=== PATIENT | male | born 1965 | race Caucasian/White ===

== ENCOUNTER 2024-07-27 18:15 | Inpatient (IN) | payer MEDICAID ==
[~2024-07-27] VITALS: Ht 167.6 cm; Wt 99.8 kg
[2024-07-27 18:38] VITALS: BP 119/71; PULSE 73; RESP 26; TEMP 98.7; O2SAT 98
[2024-07-27 19:58] LABS: FLU A ANTIGEN negative (NEGATIVE); FLU B ANTIGEN NEGATIVE (NEGATIVE)
[2024-07-27 20:48] VITALS: O2SAT 96
[2024-07-27 21:01] LABS: HEMATOCRIT 41.8 % (36-52); LYMPHOCYTES # (AUTO) 0.9 K/uL (2.0-11.5); LYMPHOCYTES % (AUTO) 5.3 % (20.5-51.1); MEAN CORPUSCULAR HEMOGLOBIN 31 pg (27-31); MEAN CORPUSCULAR HGB CONC 34 g/dL (33-37); MEAN CORPUSCULAR VOLUME 91.4 fL (80-94); MONOCYTES # (AUTO) 0.7 K/uL (0.8-1.0); MONOCYTES % (AUTO) 4.5 % (1.7-9.3); NEUTROPHILS # (AUTO) 14.6 K/uL (1.8-7.7); NEUTROPHILS % (AUTO) 90.2 % (42.2-75.2); PLATELET COUNT (AUTO) 223 K/uL (140-450); RED BLOOD CELL COUNT(AUTO) 4.57 MIL/uL (4.20-6.10); WHITE BLOOD COUNT (AUTO) 16.1 K/uL (4.8-10.8)
[2024-07-27 21:45] LABS: ANION GAP 15.1 (8-16); CALCIUM 8.9 mg/dL (8.5-10.1); CARBON DIOXIDE 32.4 mmol/L (21-32); POTASSIUM 4.5 mmol/L (3.5-5.1)
[2024-07-27 21:46] LABS: BLOOD GAS BASE EXCESS 6.3 mmol/L (-2.0-3.0); BLOOD GAS HCO3 30.7 mmol/L (21.0-28.0); BLOOD GAS PCO2 42.7 mmHg (35.0-48.0); BLOOD GAS PH 7.474 (7.350-7.450); BLOOD GAS PO2 63.2 mmHg (83.0-108.0)
[2024-07-27 21:46] LABS: CREATININE 0.9 mg/dL (0.6-1.3)
[2024-07-27 21:47] LABS: BLOOD GAS O2 SAT% 92.9 % (94.0-98.0)
[2024-07-27 21:56] LABS: ALKALINE PHOSPHATASE 51 U/L (50-136); ASPARTATE AMINOTRANSFERASE 23 U/L (15-37); TOTAL BILIRUBIN 0.5 mg/dL (0.0-1.0)
[2024-07-27 21:57] LABS: ALANINE AMINOTRANSFERASE 48 U/L (12-78); ALBUMIN 3.1 g/dL (3.4-5.0); TOTAL PROTEIN, SERUM 6.8 g/dL (6.4-8.2)
[2024-07-27 22:43] LABS: AMPHETAMINE, URINE POSITIVE ng/ml (NEG <=1000); BARBITURATE, URINE NEGATIVE ng/ml (NEG <=200); BENZODIAZEPINE, URINE NEGATIVE ng/mL (NEG <=200); CANNABINOID, URINE NEGATIVE ng/mL (NEG <=50); COCAINE, URINE NEGATIVE ng/mL (NEG <=300); OPIATE, URINE NEGATIVE ng/mL (NEG <=2000); PHENCYCLIDINE SCREEN,URINE NEGATIVE ng/mL (NEG <=25)
[2024-07-27 23:21] VITALS: O2SAT 96
[2024-07-27] MEDS ORDERED: LEVE500T9 PO (23:50)
[2024-07-27] MEDS ORDERED: PRED20TA5 PO (23:50)
[2024-07-27] MEDS ORDERED: METO25TE2 PO (23:50)
[2024-07-27] MEDS ORDERED: AMLO10TA PO (23:50)
[2024-07-27] MEDS ORDERED: ANAS1TAB56 PO (23:50)
[2024-07-27] MEDS ORDERED: METF-346 PO (23:50)
[2024-07-27] MEDS ORDERED: VIT1TABL36 PO (23:50)
[2024-07-27] MEDS ORDERED: CEPH250C16 PO (23:50)
[2024-07-28] VITALS (7 sets, daily range): BP systolic 95–149; BP diastolic 50–70; PULSE 52–89; RESP 16–22; TEMP 96.9–97.3; O2SAT 95–99
[2024-07-28] MEDS ORDERED: ALBUTEROL 0.083% 2.5 MG/3 ML NEBU INH PRN (00:20)
[2024-07-28] MEDS ORDERED: ONDANSETRON 4 MG/2 ML VIAL IVP PRN (00:20)
[2024-07-28] MEDS ORDERED: ACETAMINOPHEN 325 MG TAB PO PRN (00:20)
[2024-07-28] MEDS ORDERED: IPRATROPIUM 0.02% 0.5 MG/2.5 ML NEBU INH PRN (00:20)
[2024-07-28] MEDS ORDERED: DEXTROSE 50% 50 ML SYR IVP PRN (02:30)
[2024-07-28] MEDS: methylPREDNISolone SS 125 MG/2 ML VIAL IVP SCH (04:32)
[2024-07-28] MEDS: BLOOD GLUCOSE MONITORING 1 DEV DEV FS SCH (06:38)
[2024-07-28 06:42] LABS: BASOPHILS % (AUTO) 0.1 % (0.0-2.0); HEMATOCRIT 41.2 % (36-52); HEMOGLOBIN 13.9 g/dL (12.0-18.0); LYMPHOCYTES # (AUTO) 1.7 K/uL (2.0-11.5); LYMPHOCYTES % (AUTO) 11.7 % (20.5-51.1); MEAN CORPUSCULAR HEMOGLOBIN 31 pg (27-31); MEAN CORPUSCULAR HGB CONC 34 g/dL (33-37); MEAN CORPUSCULAR VOLUME 91.1 fL (80-94); MONOCYTES # (AUTO) 0.5 K/uL (0.8-1.0); MONOCYTES % (AUTO) 3.8 % (1.7-9.3); NEUTROPHILS % (AUTO) 84.4 % (42.2-75.2); PLATELET COUNT (AUTO) 211 K/uL (140-450); RED BLOOD CELL COUNT(AUTO) 4.52 MIL/uL (4.20-6.10); WHITE BLOOD COUNT (AUTO) 14.2 K/uL (4.8-10.8)
[2024-07-28] MEDS: ANASTROZOLE 1 MG TAB PO SCH (08:37)
[2024-07-28] MEDS: AZITHROMYCIN 500 MG in DEXTROSE 5% 250 ML IV SCH (08:37)
[2024-07-28] MEDS: ENOXAPARIN 40 MG/0.4 ML SYR SUBQ SCH (08:38)
[2024-07-28] MEDS: amLODIPine 5 MG TAB PO SCH (08:38)
[2024-07-28] MEDS: METOPROLOL SUCCINATE 50 MG TABER PO SCH (08:40)
[2024-07-28 09:12] LABS: MAGNESIUM 2.5 mg/dL (1.8-2.4); PHOSPHORUS 4.1 mg/dL (2.5-4.9)
[2024-07-28 09:13] LABS: ANION GAP 7.2 (8-16); CALCIUM 8.9 mg/dL (8.5-10.1); CARBON DIOXIDE 36.2 mmol/L (21-32); POTASSIUM 4.4 mmol/L (3.5-5.1)
[2024-07-28 09:14] LABS: CREATININE 0.8 mg/dL (0.6-1.3)
[2024-07-28] MEDS: INSULIN LISPRO SLIDING SCALE 100 UNITS/ML VIAL SUBQ PRN (11:27)
[2024-07-28] MEDS: ALBUTEROL SULFATE/IPRATROPIU 3 ML SOL IH SCH (19:00)
[2024-07-29] VITALS (10 sets, daily range): BP systolic 96–125; BP diastolic 48–76; PULSE 63–79; RESP 16–18; TEMP 97–98; O2SAT 95–100
[2024-07-29 06:37] LABS: BASOPHILS % (AUTO) 0.1 % (0.0-2.0); HEMATOCRIT 41.7 % (36-52); LYMPHOCYTES % (AUTO) 5.5 % (20.5-51.1); MEAN CORPUSCULAR HEMOGLOBIN 31 pg (27-31); MEAN CORPUSCULAR HGB CONC 34 g/dL (33-37); MEAN CORPUSCULAR VOLUME 91.2 fL (80-94); MONOCYTES # (AUTO) 0.4 K/uL (0.8-1.0); MONOCYTES % (AUTO) 2.4 % (1.7-9.3); PLATELET COUNT (AUTO) 216 K/uL (140-450); RED BLOOD CELL COUNT(AUTO) 4.57 MIL/uL (4.20-6.10); WHITE BLOOD COUNT (AUTO) 17.4 K/uL (4.8-10.8)
[2024-07-29 07:32] LABS: ANION GAP 8.9 (8-16); CALCIUM 8.7 mg/dL (8.5-10.1); CARBON DIOXIDE 34.5 mmol/L (21-32); CREATININE 0.7 mg/dL (0.6-1.3); POTASSIUM 4.4 mmol/L (3.5-5.1)
[2024-07-30] VITALS: BP 103/53; PULSE 62; PULSE 63; RESP 18; TEMP 96.8; O2SAT 92
[2024-07-30 04:00] VITALS: BP 96/65; PULSE 62; PULSE 67; RESP 18; TEMP 97.1; O2SAT 97
[2024-07-30 06:52] LABS: BASOPHILS % (AUTO) 0.1 % (0.0-2.0); HEMATOCRIT 43.1 % (36-52); HEMOGLOBIN 14.6 g/dL (12.0-18.0); LYMPHOCYTES # (AUTO) 0.9 K/uL (2.0-11.5); LYMPHOCYTES % (AUTO) 4.6 % (20.5-51.1); MEAN CORPUSCULAR HEMOGLOBIN 31 pg (27-31); MEAN CORPUSCULAR HGB CONC 34 g/dL (33-37); MONOCYTES # (AUTO) 0.4 K/uL (0.8-1.0); MONOCYTES % (AUTO) 2.1 % (1.7-9.3); NEUTROPHILS # (AUTO) 17.8 K/uL (1.8-7.7); NEUTROPHILS % (AUTO) 93.2 % (42.2-75.2); PLATELET COUNT (AUTO) 227 K/uL (140-450); RED BLOOD CELL COUNT(AUTO) 4.74 MIL/uL (4.20-6.10); WHITE BLOOD COUNT (AUTO) 19.1 K/uL (4.8-10.8)
[2024-07-30 07:15] LABS: ALBUMIN 2.8 g/dL (3.4-5.0); ANION GAP 9.4 (8-16); CALCIUM 8.6 mg/dL (8.5-10.1); CARBON DIOXIDE 32.2 mmol/L (21-32); CREATININE 0.8 mg/dL (0.6-1.3); POTASSIUM 4.6 mmol/L (3.5-5.1); TOTAL BILIRUBIN 0.5 mg/dL (0.0-1.0); TOTAL PROTEIN, SERUM 5.7 g/dL (6.4-8.2)
[2024-07-30 08:00] VITALS: BP 116/76; PULSE 68; PULSE 75; PULSE 79; RESP 18; TEMP 96.8; O2SAT 100; O2SAT 98
[2024-07-30 08:01] VITALS: PULSE 70; RESP 16; O2SAT 99
[2024-07-30 08:17] VITALS: PULSE 78; RESP 16; O2SAT 100
[2024-07-30] MEDS ORDERED: ALBU0.0912 IH (11:01)
[2024-07-30] MEDS ORDERED: AZIT250T4 PO (11:01)
[2024-07-30 11:41] VITALS: BP 106/71; PULSE 78; RESP 16; TEMP 97.6
== END 2024-07-30 12:00 | disposition home or self-care (01) | DRG 140 ==
LOC: EDBD 18:15 → MED 18:15 → MTU 07-28 00:20
PROVIDERS: ADMIT Student in an Organized Health Care Education/Training Program; ATTEND Student in an Organized Health Care Education/Training Program
DX: J44.1 Chronic obstructive pulmonary disease with (acute) exacerbation (principal); J96.01 Acute respiratory failure with hypoxia; Z20.822 Contact with and (suspected) exposure to COVID-19; E11.9 Type 2 diabetes mellitus without complications; E66.9 Obesity, unspecified; I10 Essential (primary) hypertension; Z79.4 Long term (current) use of insulin; Z79.51 Long term (current) use of inhaled steroids; Z79.899 Other long term (current) drug therapy; Z68.35 Body mass index [BMI] 35.0-35.9, adult; Z85.46 Personal history of malignant neoplasm of prostate
CPT/HCPCS: 36415; 36600; 71045; 71250; 80048; 80053; 80076; 80305; 82140; 82803; 82948; 83735; 83880; 84100; 84484; 85025; 87081; 93005; 94640; 99291; J0456; J1650; J1815; J2919; J7060

== ENCOUNTER 2024-08-10 04:35 | Emergency (ER) | payer MEDICAID ==
[~2024-08-10] VITALS: Ht 175.3 cm; Wt 97.5 kg
[~2024-08-10 04:35] MED LIST: ALBU0.0912 IH; AMLO10TA PO; ANAS1TAB56 PO; AZIT250T4 PO; LEVE500T9 PO; METF-346 PO; METO25TE2 PO; PRED20TA5 PO; VIT1TABL36 PO
[2024-08-10 04:43] VITALS: BP 105/69; PULSE 96; RESP 22; TEMP 97.9; O2SAT 97
[2024-08-10 06:00] VITALS: BP 113/66; PULSE 86; RESP 22; TEMP 97.9
[2024-08-10 06:05] VITALS: O2SAT 97
[2024-08-10 06:19] LABS: APPEARANCE,URINE CLEAR (CLEAR); BILIRUBIN,URINE NEGATIVE (NEGATIVE); BLOOD, URINE NEGATIVE (NEGATIVE); COLOR,URINE YELLOW (YELLOW); LEUKOCYTE ESTERASE ,URINE NEGATIVE (NEGATIVE); NITRITE, URINE NEGATIVE (NEGATIVE); PROTEIN,URINE NEGATIVE (NEGATIVE); UGLUCOSE NEGATIVE (NEGATIVE); UROBILINOGEN,URINE 0.2 EU/dL (0.2 - 1)
== END 2024-08-10 06:42 | disposition left against medical advice (07) ==
LOC: MED 04:35
DX: N50.819 Testicular pain, unspecified (principal); Z53.21 Procedure and treatment not carried out due to patient leaving prior to being seen by health care provider
CPT/HCPCS: 76870; 81003; Q0092